=== PATIENT | male | born 1960 | race Caucasian/White ===

== ENCOUNTER 2025-01-30 08:25 | Emergency (ER) | payer MEDICARE, MEDICAID ==
[~2025-01-30] VITALS: Ht 172.7 cm; Wt 68.0 kg
[2025-01-30 08:35] VITALS: O2SAT 99
[2025-01-30] MEDS: IBUPROFEN 800MG TABLET PO ONE (09:45)
[2025-01-30] MEDS: ACETAMINOPHEN 325MG TABLET PO ONE (09:48)
[2025-01-30] MEDS ORDERED: ACET-2708 MT (11:49)
[2025-01-30 15:15] VITALS: BP 130/71; PULSE 55; RESP 12; TEMP 37; O2SAT 98
== END 2025-01-30 15:29 ==
LOC: ER 08:25
DX: G89.11 Acute pain due to trauma (principal); M54.50 Low back pain, unspecified; I10 Essential (primary) hypertension; W01.0XXA Fall on same level from slipping, tripping and stumbling without subsequent striking against object, initial encounter; Y93.89 Activity, other specified; Y92.89 Other specified places as the place of occurrence of the external cause; Y99.8 Other external cause status
CPT/HCPCS: 72128; 72131; 99285; A4606